=== PATIENT | male | born 1945 | race Caucasian/White ===

== ENCOUNTER 2021-05-09 16:43 | Observation (INO) ==
[2021-05-09 17:28] LABS: Basophils % 0.1 %; Eosinophils # 0.2 K/mcL (0.0-0.6); Hematocrit 29.2 % (37.5-50.1); Hemoglobin 9.5 g/dL (12.9-16.9); Immature Granulocytes % 1.2 % (0-4); Lymphocytes # 1.6 K/mcL (0.6-4.6); Lymphocytes % 19.5 %; Mean Corpuscular HGB Conc 32.5 g/dL (31.6-35.5); Mean Corpuscular Hemoglobin 29.3 pg (28.0-33.3); Mean Corpuscular Volume 90.1 fL (83.0-100.0); Mean Platelet Volume 10.5 fL (9.4-12.4); Monocytes # 1.4 K/mcL (0.0-1.3); Monocytes % 17.1 %; Neutrophils # 5.1 K/mcL (1.6-8.9); Platelet Count 135 K/mcL (140-400); Red Blood Count 3.24 M/mcL (4.19-5.50); Red Cell Distribution Width 15.8 % (11.5-14.5); Segmented Neutrophils % 60.1 %; White Blood Count 8.4 K/mcL (4.3-11.1)
[2021-05-09 17:32] LABS: INR 1.6; Prothrombin Time 17.6 Seconds (9.4-12.1)
[2021-05-09 17:35] LABS: Activated Partial Thrombo Time 33.6 Seconds (26.0-36.0)
[2021-05-09 17:40] LABS: Alanine Aminotransferase 29 Units/L (7-52); Albumin 3.6 g/dL (3.5-5.7); Albumin/Globulin Ratio 1.1 (1.1-2.2); Alkaline Phosphatase 103 Units/L (34-104); Aspartate Amino Transferase 24 Units/L (13-39); BUN/Creatinine Ratio 10 (6-26); Bilirubin,Total 0.8 mg/dL (0.3-1.0); Blood Urea Nitrogen 14 mg/dL (8-23); Calcium 8.7 mg/dL (8.6-10.3); Carbon Dioxide 25 mEq/L (23-29); Chloride 97 mEq/L (98-107); Globulin 3.3 g/dL (2.4-3.5); Glucose 155 mg/dL (70-105); Magnesium 1.8 mg/dL (1.6-2.6); Osmolality,Calculated 280 (280-300); Potassium 3.2 mEq/L (3.5-5.1); Sodium 133 mEq/L (136-145); Total Protein 6.9 g/dL (6.4-8.9); eGFR For African Americans 60 (> 60); eGFR For Non-African Americans 49 (> 60)
[2021-05-09 17:43] LABS: Troponin I < 0.03 ng/mL (< 0.04)
[2021-05-09 17:56] LABS: Bilirubin,Urine Negative (Negative); Blood,Urine Negative (Negative); Clarity,Urine Clear (Clear); Color,Urine Yellow (Yellow); Glucose,Urine (UA) >=1000 mg/dL (Normal); Ketones,Urine Negative (Negative); Leukocyte Esterase,Urine Negative (Negative); Nitrite,Urine Negative (Negative); Protein,Urine 100 mg/dL (Neg-Trace); Urobilinogen,Urine Normal (Normal)
[2021-05-09 17:57] LABS: Bacteria,Urine Few per hpf (None-Few); RBC,Urine 0-3 per hpf (0-3); WBC,Urine 0-3 per hpf (0-3)
[2021-05-09] MEDS ORDERED: Cefepime HCl 1,000 MG in Water for inj. (sterile) 10 ML IVP ONE (20:00)
[2021-05-09] MEDS ORDERED: Naloxone 0.4 MG/ML INJ IVP PRN (20:51)
[2021-05-09] MEDS ORDERED: 0.9 % Sodium Chloride 1,000 ML IVC SCH (20:51)
[2021-05-09] MEDS ORDERED: NON-FORMULARY MEDICATION 1 EACH EACH (Insulin Aspart [Novolog Flexpen] 100 UNIT/ML Insuln. SQ SCH (21:00)
[2021-05-09] MEDS: dexAMETHasone 4 MG TABLET PO SCH (21:33)
[2021-05-09] MEDS: Metoprolol XL (24 HR) Succ 50 MG TAB.ER.24H PO SCH (21:33)
[2021-05-09] MEDS ORDERED: Dextrose Gel 15 GM/37.5 ML TUBE PO PRN ×2 (21:51)
[2021-05-09] MEDS ORDERED: D5% in Water 1,000 ML IVC PRN (21:51)
[2021-05-09] MEDS ORDERED: *HR* Dextrose 50 % in Water (Syg) 50 ML SYRINGE IVP PRN (21:51)
[2021-05-10 07:41] LABS: Basophils % 0.1 %; Eosinophils % 0.1 %; Hematocrit 31.1 % (37.5-50.1); Hemoglobin 10.2 g/dL (12.9-16.9); Immature Granulocytes % 1.3 % (0-4); Lymphocytes # 1.4 K/mcL (0.6-4.6); Lymphocytes % 15.6 %; Mean Corpuscular HGB Conc 32.8 g/dL (31.6-35.5); Mean Corpuscular Hemoglobin 29.7 pg (28.0-33.3); Mean Corpuscular Volume 90.4 fL (83.0-100.0); Mean Platelet Volume 10.6 fL (9.4-12.4); Monocytes # 0.9 K/mcL (0.0-1.3); Monocytes % 10.1 %; Neutrophils # 6.3 K/mcL (1.6-8.9); Platelet Count 152 K/mcL (140-400); Red Blood Count 3.44 M/mcL (4.19-5.50); Red Cell Distribution Width 15.8 % (11.5-14.5); Segmented Neutrophils % 72.8 %; White Blood Count 8.6 K/mcL (4.3-11.1)
[2021-05-10 07:58] LABS: Potassium 4.1 mEq/L (3.5-5.1)
[2021-05-10 07:59] LABS: BUN/Creatinine Ratio 12 (6-26); Blood Urea Nitrogen 15 mg/dL (8-23); Calcium 9.3 mg/dL (8.6-10.3); Carbon Dioxide 28 mEq/L (23-29); Chloride 97 mEq/L (98-107); Glucose 233 mg/dL (70-105); Osmolality,Calculated 288 (280-300); Sodium 135 mEq/L (136-145); eGFR For African Americans > 60 (> 60); eGFR For Non-African Americans 56 (> 60)
[2021-05-10] MEDS ORDERED: Cefepime HCl 1,000 MG in 0.9 % Sodium Chloride Mini Bag 100 ML IVPB SCH (09:00)
[2021-05-10] MEDS ORDERED: Losartan/HCTZ 50-12.5 TABLET PO SCH (09:00)
[2021-05-10] MEDS: OLANZapine 5 MG TAB.RAPDIS PO SCH (10:33)
[2021-05-10] MEDS: GlipiZIDE 5 MG TABLET PO SCH (10:33)
[2021-05-10] MEDS: *HR* Metformin 500 MG TABLET PO SCH ×2 (10:35→17:14)
[2021-05-10] MEDS: Folic Acid 1 MG TABLET PO SCH (10:35)
[2021-05-10] MEDS: dexAMETHasone 4 MG TABLET PO SCH ×2 (10:35→20:44)
[2021-05-10] MEDS: DilTIAZem CD (24hr) 300 MG CAP.ER.24H PO SCH (10:35)
[2021-05-10] MEDS: Cholecalciferol (D-3) 1,000 UNIT (25MCG) TABLET PO SCH (10:35)
[2021-05-10] MEDS: Metoprolol XL (24 HR) Succ 50 MG TAB.ER.24H PO SCH ×2 (10:35→20:44)
[2021-05-10] MEDS: Ondansetron ODT 4 MG TAB.RAPDIS PO SCH (10:35)
[2021-05-10] MEDS: Dapagliflozin Propanediol [Farxiga] 5 MG PO SCH (10:36)
[2021-05-10] MEDS: Insulin LISPRO 300 UNITS/3 ML VIAL SUBQ SCH ×3 (10:37→17:17)
[2021-05-10] MEDS ORDERED: Cefepime HCl 1,000 MG in 0.9 % Sodium Chloride 10 ML IVPB SCH (16:00)
[2021-05-10] MEDS ORDERED: *HR* Rivaroxaban 10 MG TABLET PO SCH (17:00)
[2021-05-10] MEDS: Cefepime HCl 1,000 MG in 0.9 % Sodium Chloride 10 ML IVP SCH ×2 (17:15→23:51)
[2021-05-10 17:37] LABS: Lactate Dehydrogenase 123 Units/L (140-271)
[2021-05-10 19:27] LABS: C-Reactive Protein > 300 mg/L (Less than 10)
[2021-05-10 20:38] LABS: Adenovirus Not Detected (Not Detect); Bordetella Pertussis Not Detected (Not Detect); Chlamydophila pneumoniae Not Detected (Not Detect); Coronavirus 229E Not Detected (Not Detect); Coronavirus HKU1 Not Detected (Not Detect); Coronavirus NL63 Not Detected (Not Detect); Coronavirus OC43 Not Detected (Not Detect); Human Metapneumovirus Not Detected (Not Detect); Human Rhinovirus/Enterovirus Not Detected (Not Detect); Influenza A Subtype 2009 H1 Not Detected (Not Detect); Influenza B Not Detected (Not Detect); Mycoplasma pneumoniae Not Detected (Not Detect); Parainfluenza Virus 1 Not Detected (Not Detect); Parainfluenza Virus 2 Not Detected (Not Detect); Parainfluenza Virus 3 Not Detected (Not Detect); Parainfluenza Virus 4 Not Detected (Not Detect); Respiratory Syncytial Virus Not Detected (Not Detect); SARS-CoV-2 Not Detected (Not Detect)
[2021-05-10] MEDS ORDERED: Insulin LISPRO 300 UNITS/3 ML VIAL SUBQ SCH (21:00)
[2021-05-10] MEDS ORDERED: Insulin DETEMIR 100 UNIT/ML X5UNITS SUBQ SCH (21:00)
[2021-05-11 07:56] VITALS: RESP 17
[2021-05-11] MEDS: OLANZapine 5 MG TAB.RAPDIS PO SCH (09:27)
[2021-05-11] MEDS: Folic Acid 1 MG TABLET PO SCH (09:28)
[2021-05-11] MEDS: Ondansetron ODT 4 MG TAB.RAPDIS PO SCH (09:28)
[2021-05-11] MEDS: Cholecalciferol (D-3) 1,000 UNIT (25MCG) TABLET PO SCH (09:28)
[2021-05-11] MEDS: dexAMETHasone 4 MG TABLET PO SCH (09:28)
[2021-05-11] MEDS: Cefepime HCl 1,000 MG in 0.9 % Sodium Chloride 10 ML IVP SCH (09:28)
[2021-05-11] MEDS: *HR* Metformin 500 MG TABLET PO SCH (09:28)
[2021-05-11] MEDS: GlipiZIDE 5 MG TABLET PO SCH (09:28)
[2021-05-11] MEDS: Dapagliflozin Propanediol [Farxiga] 5 MG PO SCH (09:29)
[2021-05-11] MEDS: Insulin LISPRO 300 UNITS/3 ML VIAL SUBQ SCH ×2 (09:29→13:27)
[2021-05-11] MEDS: DilTIAZem CD (24hr) 300 MG CAP.ER.24H PO SCH (09:29)
[2021-05-11] MEDS: Metoprolol XL (24 HR) Succ 50 MG TAB.ER.24H PO SCH (09:30)
[2021-05-11 11:36] VITALS: BP 118/73; PULSE 93; TEMP 97.4; O2SAT 94
[2021-05-11] MEDS ORDERED: DilTIAZem CD (24hr) 240 MG CAP.ER.24H PO SCH (12:00)
== END 2021-05-11 14:18 | disposition home or self-care (01) ==
LOC: INPGRE 16:43 → EMEROOGRE 16:43 → INPGRE 20:41
PROVIDERS: ADMIT Family Medicine; ATTEND Family Medicine